=== PATIENT | female | born 1990 | race Caucasian/White ===

== ENCOUNTER 2016-08-08 21:14 | Outpatient (CLI) | payer OTHER ==
[~2016-08-08] VITALS: Ht 157.5 cm; Wt 69.2 kg
[~2016-08-08 21:14] MED LIST: BACLOFEN 10MG T10 MG PO; CIPRO 500MG TA500 MG PO; CLEOCIN HCL300 MG PO; DICLOFENAC SODI75 M2 PO; FERROUS SULFAT325 M2 PO; FLONASE 50 MCG16 GM; IRON TABLETS325 MG PO; MAG-OX 400MG T400 MG PO; MIRENA52 MG IU; MOTRIN 400MG.400 MG PO; MOTRIN400 MG PO; NICOTINE T21 MG/24 H TD; PEN-VK500 MG PO; PERCOCET 5/3251 EACH PO; PRENATAL PLUS1 TA1 PO; TORADOL10 MG PO; ZITHROMAX Z PA250 MG PO
[2016-08-08 21:41] VITALS: BP 109/66
[2016-08-08 21:48] LABS: URINE BILIRUBIN - DIPSTICK NEGATIVE (NEG); URINE BLOOD NEGATIVE (NEG)
== END 2016-08-08 22:45 | disposition home or self-care (01) ==
LOC: OBOUT 21:14 → OB 21:15 → OBOUT 22:45
PROVIDERS: Nurse Practitioner Obstetrics & Gynecology
DX: O36.8130 Decreased fetal movements, third trimester, not applicable or unspecified (principal); Z3A.32 32 weeks gestation of pregnancy; R10.2 Pelvic and perineal pain

== ENCOUNTER → 2017-02-20 | Outpatient (CLI) | payer OTHER ==
[~2017-02-20] MED LIST changes: +DICLOXACILLIN500 MG PO; -MAG-OX 400MG T400 MG PO; +MAGNESIUM250 M1 PO; +PERCOCET1 TAB PO; +VOLTAREN50 MG PO
[2017-02-20 12:11] LABS: AEROMONAS NOT DETECTED (NOT DETECTE); CYCLOSPORA CAYETANENSIS NOT DETECTED (NOT DETECTE); E COLI O157 NOT DETECTED (NOT DETECTE); ENTEROAGGREGATIVE E COLI NOT DETECTED (NOT DETECTE); ENTEROPATHOGENIC E COLI NOT DETECTED (NOT DETECTE); ENTEROTOXIGENIC E COLI NOT DETECTED (NOT DETECTE); SHIGA-LIKE TOXIN PROD. E COLI NOT DETECTED (NOT DETECTE); SHIGELLA/ENTEROINVASIVE E COLI NOT DETECTED (NOT DETECTE); VIBRIO CHOLERAE NOT DETECTED (NOT DETECTE)
[2017-02-20 12:12] LABS: ASTROVIRUS NOT DETECTED (NOT DETECTE); NOROVIRUS NOT DETECTED (NOT DETECTE); SAPOVIRUS NOT DETECTED (NOT DETECTE)
== END ==
LOC: LAB 12:08
PROVIDERS: Nurse Practitioner Family
DX: K52.9 Noninfective gastroenteritis and colitis, unspecified (principal)